=== PATIENT | female | born 1975 ===

== ENCOUNTER 2018-02-24 08:48 | Emergency (ER) | payer OTHER ==
--- NOTE | 2018-02-24 09:02 | PDOC ---
Attending Attestation - Resident Resident Name: Juan Burton - ED Attending Attestation I have performed the following: I have examined & evaluated the patient, The case was reviewed & discussed with the resident, I agree w/resident's findings & plan, Exceptions are as noted - HPI HPI: 42 yo F no significant PMH presents with swelling and redness to [facility]. She states that she had an insect bite which she scratched, then noted that it became swollen, red, and extremely painful over a few days. She was evaluated in an urgent care, now has been taking bactrim and keflex for the past 2 days. She noted that there was some gonzales/purple discoloration in the center of the lesion, and became concerned when she researched it online. She does note that the swelling has been improving and the pain is much better than it was. The redness has been receding. - Physicial Exam PE: GENERAL: Awake, alert, and fully oriented, in no acute distress HEAD: No signs of trauma EYES: PERRLA, EOMI, sclera anicteric, conjunctiva clear ENT: Auricles normal inspection, hearing grossly normal, nares patent, oropharynx clear without exudates. Moist mucosa NECK: Normal ROM, supple, no lymphadenopathy, JVD, or masses EXTREMITIES: Normal range of motion, no edema. No clubbing or cyanosis. No cords. NEUROLOGICAL: Cranial nerves II through XII grossly intact. Normal speech, normal gait SKIN: Warm, Dry, normal turgor. +Firm, erythematous area to the L lateral/ posterior calf, with grayish discoloration in the center. No calf tenderness. - Medical Decision Making Will obtain soft tissue ultrasound to r/o abscess, as the area of the cellulitis is very firm. However, in light of the improvement with abx, will DC home to continue them if the ultrasound is negative. The grayish discoloration may be related to the colloidal silver she has been applying, but also may be bruising from intense scratching.
--- NOTE | 2018-02-24 09:19 | PDOC ---
History of Present Illness - General Chief Complaint: Redness To Affected Area Stated Complaint: LEFT LEG RED Time Seen by Provider: 02/24/18 08:55 History Source: Patient Exam Limitations: No Limitations - History of Present Illness Initial Comments: 02/24/18 09:10 Patient is a 42F with no significant medical history here today complaining of erythema and swelling to her left lateral leg for the past 2 weeks. The patient was diagnosed with cellulitis and prescribed keflex and bactrim at urgent care 2 days ago. The patient reports that the area of swelling was outlined with a pen at that time. Since then, the swelling, redness and pain has decreased. The patient is coming in today because the center of the infected area became discolored, turning darker than the rest of the area. Denies fevers, chills, nausea, vomiting. Reports medication compliance and has pill bottles with her. Past History - Past Medical History Allergies/Adverse Reactions: Allergies Allergy/AdvReac Type Severity Reaction Status Date / Time No Known Allergies Allergy Verified 02/24/18 08:53 Home Medications: Ambulatory Orders Cephalexin [Keflex] 500 mg PO TID 02/24/18 Sulfamethoxazole/Trimethoprim [Bactrim Ds Tablet] 1 each PO BID 02/24/18 Review of Systems - Review of Systems Comments:: 02/24/18 09:13 GENERAL/CONSTITUTIONAL: No fever or chills. No weakness. HEAD, EYES, EARS, NOSE AND THROAT: No change in vision. No ear pain or discharge. No sore throat. CARDIOVASCULAR: No chest pain or shortness of breath RESPIRATORY: No cough, wheezing, or hemoptysis. GASTROINTESTINAL: No nausea, vomiting, diarrhea or constipation. GENITOURINARY: No dysuria, frequency, or change in urination. MUSCULOSKELETAL: No joint or muscle swelling or pain. No neck or back pain. SKIN: +rash NEUROLOGIC: No headache, vertigo, loss of consciousness, or change in strength/ sensation. ENDOCRINE: No increased thirst. No abnormal weight change HEMATOLOGIC/LYMPHATIC: No anemia, easy bleeding, or history of blood clots. ALLERGIC/IMMUNOLOGIC: No hives or skin allergy. *Physical Exam - Physical Exam Comments: 02/24/18 09:19 GENERAL: Awake, alert, and fully oriented, in no acute distress HEAD: No signs of trauma, normocephalic, atraumatic EYES: PERRLA, EOMI, sclera anicteric, conjunctiva clear ENT: Auricles normal inspection, hearing grossly normal, nares patent, oropharynx clear without exudates. Moist mucosa NECK: Normal ROM, supple, no lymphadenopathy, JVD, or masses LUNGS: No distress, speaks full sentences, clear to auscultation bilaterally HEART: Regular rate and rhythm, normal S1 and S2, no murmurs, rubs or gallops, peripheral pulses normal and equal bilaterally. ABDOMEN: Soft, nontender, normoactive bowel sounds. No guarding, no rebound. No masses EXTREMITIES: Normal inspection, Normal range of motion, no edema. No clubbing or cyanosis. NEUROLOGICAL: Cranial nerves II through XII grossly intact. Normal speech, normal gait, no focal sensorimotor deficits SKIN: 5x6cm area of erythematous swelling, taunt, smaller than marked outline. Some surrounding erythema Medical Decision Making - Medical Decision Making 02/24/18 09:20 Patient is 42F here today with cellulits to left leg. On appropriate outpatient treatment. Vital signs stable and normal. Will rule out abscess with ultrasound. Likely discharge home. Will give PCP referral. 02/24/18 10:11 Ultrasound shows no fluid collection. Will discharge home with return precautions. *DC/Admit/Observation/Transfer Diagnosis at time of Disposition: Cellulitis - Discharge Dispostion Disposition: HOME Condition at time of disposition: Good Decision to Admit order: No - Referrals Referrals: [facility] [place] [facility] [place] [Provider Group] - Patient Instructions Printed Discharge Instructions: DI for Cellulitis -- Adult Additional Instructions: Please return to the ED if you have any new, worsening or concerning symptoms. Please follow up with a primary care doctor. You may find one on your own, but a referral has also been included for you in your paperwork. Please continue taking your antibiotics as prescribed. - Post Discharge Activity
[2018-02-24 09:30] VITALS: BP 117/73; PULSE 81; TEMP 98.5; BMI 27.1
== END 2018-02-24 10:15 | disposition home or self-care (01) ==
LOC: FER 08:48
DX: L03.116 Cellulitis of left lower limb (principal)
CPT/HCPCS: 76882; 99281-25